=== PATIENT | male | born 1940 | race Native Hawaiian/Other Pacific Islander ===

== ENCOUNTER 2021-02-03 10:13 | Day surgery (SDC) | payer MEDICARE, SELFPAY ==
[2021-01-29 10:55] VITALS: BMI 25.5
[2021-02-03 10:30] VITALS: BP 182/98; PULSE 70; RESP 16; TEMP 36.4; O2SAT 99
[2021-02-03 11:05] VITALS: BP 151/84; PULSE 67; RESP 18; TEMP 36.7; O2SAT 97
[2021-02-03 11:14] VITALS: BP 151/84; PULSE 67; RESP 18; TEMP 36.7; O2SAT 97
--- NOTE | 2021-02-03 13:02 | P.OP_ITS ---
Date of procedure: 02/03/21 Pre-op Diagnosis:: History of bladder cancer Post-op Diagnosis:: History of bladder cancer with no evidence of tumor recurrence today Procedure performed:: Surveillance cystoscopy Surgeon:: Elieser Stone MD Anesthesia: local Estimated blood loss (mL): 0 Clinical Note:: Patient is a 80-year-old white male with a history of bladder cancer. He retu rns today for surveillance cystoscopy. He has been 2 years since his last cystoscopy due to the coronavirus pandemic. He denies any voiding difficulties or hematuria. Operative findings:: There remains some mild shaggy appearing tissue to the right of the right ureteral orifice. This is stable since his 2 previous cystoscopies which were 2 years and 3 years ago. Operative note:: Patient taken to the cystoscopy suite after informed consent was obtained. On the stretcher he was prepped and draped in a standard surgical fashion and 2% lidocaine placed into the urethra and the urethra clamped for 5 minutes. After 5 minutes the flexible cystoscope introduced into the urethral meatus. It passed to the prostatic urethra which showed some mild hyperplasia. The bladder was entered and examined in a systematic fashion. Again of note was some shaggy inflammatory tissue lateral to the right ureteral orifice. It appears stable from previous cystoscopy. No obvious bladder tumors were present. There is no evidence of trabeculation, cellules or diverticula. The ureteral orifices in their normal anatomic position with clear efflux of urine. The scope was retroflexed showing a small median lobe. The scope then removed. The patient tolerated the procedure well there are no complications. We discussed the findings today we will see him back in 1 year in follow-up. Condition: stable Disposition: same day Specimens:: None Complications:: None
== END 2021-02-03 11:18 | disposition home or self-care (01) ==
PROVIDERS: PCP Family Medicine; Visit Provider Urology
DX: Z08 Encounter for follow-up examination after completed treatment for malignant neoplasm (principal); Z85.51 Personal history of malignant neoplasm of bladder
CPT/HCPCS: 52000

== ENCOUNTER 2022-02-16 09:06 | Day surgery (SDC) | payer MEDICARE, SELFPAY ==
[2022-02-11 13:19] VITALS: BMI 26.3
[2022-02-16 09:25] VITALS: BP 164/100; PULSE 61; RESP 18; TEMP 36.4; O2SAT 99
[2022-02-16 11:13] VITALS: BP 187/87; PULSE 58; RESP 16; TEMP 36.2; O2SAT 99
--- NOTE | 2022-02-16 11:40 | HMH.OPNOTE ---
Date of procedure: 02/16/22 Pre-op Diagnosis:: History of bladder cancer Post-op Diagnosis:: Bladder tumor recurrence Procedure performed:: Surveillance cystoscopy Surgeon:: Elieser Stone MD Anesthesia: local Estimated blood loss (mL): 0 Clinical Note:: 81-year-old white male with history of bladder cancer presents for surveillance cystoscopy. He denies any gross hematuria. Operative findings:: Small bladder tumor recurrence was noted at about the 8 o'clock position laterally. Operative note:: Patient taken to the cystoscopy suite after informed consent was obtained. On the stretcher he was prepped and draped in the standard surgical fashion and 2% lidocaine placed into the urethra and the urethra clamped for 5 minutes. Clamp then removed and the flexible cystoscope introduced into the urethra and the past into the bladder without difficulty. The bladder was examined in a systematic fashion. A small 5 mm papillary finding was noted in the right lateral wall about the 8 o'clock position. No other abnormalities were noted. Scope was retroflexed showing normal bladder neck and no evidence of a median lobe. The prostate showed some moderate bilateral hyperplasia. Rest of the urethra was within normal limits. The scope removed and the patient tolerated the procedure well. We discussed the findings and I recommended we proceed with resection of the small bladder tumor at his earliest convenience. Condition: stable Disposition: same day Specimens:: None Complications:: None
== END 2022-02-16 11:13 | disposition home or self-care (01) ==
LOC: OUTP 09:08
PROVIDERS: PCP Family Medicine; Visit Provider Urology
DX: D49.4 Neoplasm of unspecified behavior of bladder (principal); Z85.51 Personal history of malignant neoplasm of bladder; Z79.899 Other long term (current) drug therapy; I10 Essential (primary) hypertension; J44.9 Chronic obstructive pulmonary disease, unspecified
CPT/HCPCS: 52000

== ENCOUNTER 2022-03-06 07:52 | Day surgery (SDC) | payer MEDICARE, SELFPAY ==
[2022-03-03 13:52] VITALS: BMI 40.9
[2022-03-06] VITALS (11 sets, daily range): BP systolic 155–179; BP diastolic 71–93; PULSE 65–75; RESP 12–20; TEMP 36.1–36.8; O2SAT 93–99
--- NOTE | 2022-03-06 08:42 | ECG_ITS ---
APPROVED REPORT Exam: Resting ECG HR:66 bpm ECG Measurements Heart Rate [address] 141 P 56 QRSd 90 QRS 60 QT 422 T 47 QTc 436 Conclusion SINUS RHYTHM WITH OCCASIONAL SUPRAVENTRICULAR PREMATURE COMPLEXES BORDERLINE ECG UNCONFIRMED REPORT Electronically signed by : Jayme Yeager MD 03/06/2022 21:40:32
--- NOTE | 2022-03-06 09:16 | P.PN_ITS ---
[facility] Anesthesia Checklist - Patient Identification Patient Identification: Arm Band, Verbal (Name & ) - Structural Data Admitted From: Home Planned Operative Procedure/s: TURB Consent for Planned Operative Procedure(s) Verified: Yes Verified Documents: Surgical Consent - NPO Status Verified Time NPO: 00:00 - Additional verifications Anesthesia Reactions: Yes (N/V) Hx Blood Transfusions: No Blood Transfusion Reaction: No - Cardiovascular Assessment Pulse Rhythm: Irregular - Airway Assessment C-Spine Mobility Assessed: Yes (Limited in all directions) TMJ Mobility Assessed: Yes Dentition: Partials - Neurological Assessment Level of Consciousness: Awake, Alert, Appropriate, Sedated - Anesthesia Plan Anesthesia Risk discussed: Yes ASA Class: II Anesthesia Type: General [facility] History I have reviewed the patient's past medical history: Yes Medical History: Reports:: Hyperlipidemia, Hypertension Denies:: Cancer, Diabetes Mellitus Type 1, Diabetes Mellitus Type 2, Internal Pacemaker, MRSA, Seizures *Have you ever received a pneumonia vaccine?: Yes *Have you received a flu vaccine this season?: Yes Other Medical History: Denies: Blood Transfusion Reaction Anesthesia experience/problems:: none Other Surgeries: No: Pacemaker Amputation: No Fractures: No - *Social History Last grade of school completed: High school graduate Smoking Status: Never smoker Alcohol Intake: never Substance Use Type: denies use *Occupational Status:: retired Housing: house Household Members: family *Travel in the last 8 weeks: None Family Hx:: Cancer
--- NOTE | 2022-03-06 10:38 | P.PN_ITS ---
[facility] Anesthesia Record Part I Intake, IV Amount: 700 Estimated blood loss (mL): 3 Urine output (mL): 0 Blood Products used (#): none Blood Pressure: 157/71 SaO2: 96 Pulse Rate: 71 Respiratory Rate: 20 Temperature: 97 F Patient is:: Awake, Stable
--- NOTE | 2022-03-06 10:48 | SUR.PHASEI ---
1050- detailed report called to jordana gudino in post op.
--- NOTE | 2022-03-06 11:51 | HMH.ANESII ---
[facility] Anesthesia Record Part II Discharge Time: 10:45 Destination: Surgical Day Care (OP Surgery) PACU nurse assessment reviewed?: Yes Patient Condition:: Good Anesthesia Complications:: None Swallowing reflex intact?: Yes Cyanosis?: No Blood Pressure: 164/78 Pulse Rate: 71 Temperature: 97 F Mental Status: Alert & Oriented Pain level:: 0 Nausea and/or vomitting:: None Intake, IV Amount: 0
--- NOTE | 2022-03-06 12:19 | HMH.OPNOTE ---
Date of procedure: 03/06/22 Pre-op Diagnosis:: Bladder tumor recurrence Post-op Diagnosis:: Bladder tumor recurrence Procedure performed:: Transurethral resection of bladder tumor less than 1 cm Surgeon:: Elieser Stone MD DIRECTOR MARKETING:: Other (maryan) Anesthesia: LMA Estimated blood loss (mL): 0 Clinical Note:: Patient is a 81-year-old white male with a history of bladder cancer. Recent surveillance cystoscopy revealed a small recurrence in the right lateral aspect of the bladder. He presents for TURBT today. Operative findings:: Small, shallow papillary tumor right lateral wall 8 o'clock position. Operative note:: Patient taken to the operating room after informed consent was obtained. Was placed on the operating table in the supine position and general anesthesia administered. Preoperative antibiotics and sequential compression devices placed. He was then placed into the dorsolithotomy position and prepped and draped in the standard surgical fashion. 22 Manny passed into the urethral meatus. It passed into the bladder without difficulty and the bladder examined in a systematic fashion with the 30 and 70 degree lenses. Again the only abnormality was that of a small shallow bladder tumor at the 8 o'clock position on the right side. The cystoscope removed and our 24 [place] resectoscope sheath passed into the bladder without difficulty and our cutting loop was used to resect the papillary tissue. The base of the tumor was then fulgurated. Specimens were passed off. Light fulguration of the prostatic urethra was done at the 6:00 and 12 o'clock position. The scope then removed. A 16 [place] Wylie catheter passed and 10 cc placed into the balloon. Slightly pink urine was obtained. A belladonna and opium suppository was placed due to patient's previous complaints of discomfort after TURBT. Patient tolerated procedure well there are no complications. Condition: stable Disposition: PACU Specimens:: Bladder tumor specimen Complications:: None
== END 2022-03-06 11:56 | disposition home or self-care (01) ==
LOC: OR 07:53
PROVIDERS: PCP Family Medicine; Visit Provider Urology
PROC: 0TBB8ZZ Excision of Bladder, Via Natural or Artificial Opening Endoscopic (ICD-10-PCS; principal; 2022-03-06 09:30)
DX: C67.9 Malignant neoplasm of bladder, unspecified (principal); E78.5 Hyperlipidemia, unspecified; I10 Essential (primary) hypertension; Z79.899 Other long term (current) drug therapy
CPT/HCPCS: 52234; 88305; 93005; 96374; J2405